=== PATIENT | male | born 1970 ===

== ENCOUNTER → 2020-11-30 | Emergency (ER) | payer OTHER ==
[~2020-11-30] VITALS: Ht 162.6 cm; Wt 58.1 kg
== END | disposition left against medical advice (07) ==
LOC: ER 09:59
DX: S80.211A Abrasion, right knee, initial encounter (principal); S30.1XXA Contusion of abdominal wall, initial encounter; S00.83XA Contusion of other part of head, initial encounter; Y08.89XA Assault by other specified means, initial encounter; Y93.89 Activity, other specified; Y92.89 Other specified places as the place of occurrence of the external cause; Y99.8 Other external cause status